=== PATIENT | female | born 1975 | race Caucasian/White ===

== ENCOUNTER → 2017-02-20 | Outpatient (CLI) | payer OTHER ==
[2017-02-20 19:47] LABS: LYME DISEASE AB IGG NEG (NEG); LYME DISEASE AB IGM NEG (NEG)
== END | disposition home or self-care (01) ==
LOC: C.LABMFLN 15:09
PROVIDERS: ATTEND Family Medicine
DX: A69.20 Lyme disease, unspecified (principal)